=== PATIENT | male | born 1955 | race Caucasian/White ===

== ENCOUNTER → 2016-12-08 | Outpatient (CLI) | payer BC ==
[~2016-12-08] MED LIST: ACET325T96 PO; GLUCTAB7 PO; IBUP-1050 PO; MAGN250T3 PO; TURM1CAP PO
--- NOTE | 2016-12-08 08:36 | DIAGNOSTIC IMAGING REPORT ---
RIGHT KNEE INCLUDING BILATERAL STANDING AP VIEWS CLINICAL HISTORY: Right knee pain COMPARISON: 09/17/2015 DISCUSSION: No acute fractures are visualized. A small right joint effusion is suspected. There are moderate posterior osteoarthritic changes involving the right knee with medial joint compartment narrowing. There are small dorsal patellar spurs. No destructive lesions are evident. IMPRESSION: Moderate osteoarthritic changes involving the right knee. No acute fractures. Electronically signed by: James Roberts M.D. 12/08/2016 8:34 AM Dictated Date/Time: 12/08/2016 8:33 AM
== END | disposition home or self-care (01) ==
LOC: C.RDSM 08:15
PROVIDERS: ATTEND Physician Assistant
DX: M17.11 Unilateral primary osteoarthritis, right knee (principal)

== ENCOUNTER → 2017-03-13 | Outpatient (CLI) | payer BC ==
--- NOTE | 2017-03-13 08:11 | DIAGNOSTIC IMAGING REPORT ---
RIGHT SHOULDER MIN 2 VIEWS CLINICAL HISTORY: Right shoulder pain. Impingement syndrome. COMPARISON: 03/17/2016 DISCUSSION: No fractures or dislocations are visualized. Degenerative changes are present within the AC joint. No destructive lesions are visualized. IMPRESSION: 1. Degenerative changes within the AC joint 2. No fractures, dislocations, or periarticular calcifications are visualized Electronically signed by: James Roberts M.D. 03/13/2017 8:09 AM Dictated Date/Time: 03/13/2017 8:09 AM
== END | disposition home or self-care (01) ==
LOC: C.RDSM 08:32
PROVIDERS: ATTEND Physician Assistant
DX: M75.41 Impingement syndrome of right shoulder (principal)

== ENCOUNTER → 2017-04-17 | Outpatient (CLI) | payer BC ==
--- NOTE | 2017-04-17 08:50 | DIAGNOSTIC IMAGING REPORT ---
R HAND MIN 3 VIEWS CLINICAL HISTORY: RIGHT HAND PAIN COMPARISON: None. DISCUSSION: No acute fractures are visualized. There are mild osteoarthritic changes. There is deformity involving the tuft of the distal phalanx of the index finger. This could be secondary to either prior trauma or frostbite injury. Hyperparathyroidism, psoriasis, and collagen vascular disease are also included within the differential. Clinical correlation is advocated in this regard. There are small bony erosions involving the distal aspect of the proximal phalanx of the fourth digit. There is a bony erosion involving the base of the hamate. There is a small erosion involving the distal ulna. IMPRESSION: 1. No acute fractures 2. Mixed arthritic pattern with areas of osteoarthritis as well as several small erosions 3. 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 Please see above differential diagnosis. Clinical correlation will be necessary. Electronically signed by: James Roberts M.D. 04/17/2017 8:48 AM Dictated Date/Time: 04/17/2017 8:44 AM
== END | disposition home or self-care (01) ==
LOC: C.RDSM 10:37
PROVIDERS: ATTEND Physician Assistant
DX: M19.041 Primary osteoarthritis, right hand (principal)

== ENCOUNTER → 2017-05-26 | Day surgery (SDC) | payer BC ==
[2017-05-13 09:49] VITALS: Ht 172.7 cm; Wt 72.7 kg
[~2017-05-26] VITALS: Ht 172.7 cm; Wt 72.7 kg
[~2017-05-26] MED LIST changes: +ATROPINE SULFATE 0.1 MG/ML 5ML SYR IV PRN; +BUPIVACAINE 0.5 % 5 MG/1 ML PF 10ML VIAL ONE; +CEFAZOLIN 2000MG IV PUSH 10 ML IV SCH; +EpHEDrine SULFATE INJ 50 MG/ML AMP IV PRN; +FENTANYL CITRATE INJ 50 MCG/1 ML 2 ML VIAL IV PRN; +FENTANYL CITRATE INJ 50 MCG/1 ML 2 ML VIAL ONE; +LACTATED RINGER'S 1000ML 1,000 ML IV SCH; +LIDOCAINE HCL 2% 2 ML VIAL (20MG/ML) ONE; +LIDOCAINE HCL 2% LOCAL 20 ML VIAL ONE; +MIDAZOLAM HCL 1 MG/ML 2ML VIAL ONE; +ONDANSETRON INJ 2 MG/ML 2 ML VIAL IV PRN; +PROPOFOL IV EMULSION 10 MG/ML 20 ML VIAL IV ONE; +SODIUM CHLORIDE 0.9% 1000ML 1,000 ML IV SCH
--- NOTE | 2017-05-26 14:17 | History & Physical Bridge Note ---
H&P Re-Evaluation Bridge Note: I have examined the patient, reviewed the History & Physical and in the interval since the performance of the History & Physical I have noted the following changes of clinical significance: consent obtained.No changes noted
--- NOTE | 2017-05-26 14:18 | Discharge Instructions ---
Discharge Instructions Date of Service May 26, 2017. Visit Reason for Visit: Right Wrist Carpal Tunnel Syndrome Discharge Discharge Diagnosis / Problem: same Discharge Goals Goal(s): Decrease discomfort, Improve function, Increase independence Medications Stopped Medications Name(s): na Restart Stopped Medication(s): use all scripts as directed Activity Recommendations Activity Limitations: as noted below Lifting Limitations: until after follow-up appointment Exercise/Sports Limitations: until after follow-up appointment May Resume Sexual Activity: when tolerated Shower/Bathe: keep incision dry Anesthesia . Post Anesthesia Instructions: If you have had General Anesthesia or IV Sedation: * Do not drive today. * Resume driving when surgeon permits. * Do not make important decisions or sign legal documents today. * Call surgeon for: 1. Temperature elevations greater than 101 degrees F. 2. Uncontrollable pain. 3. Excessive bleeding. 4. Persistent nausea and vomiting. 5. Medication intolerance (nausea, vomiting or rash). * For nausea and vomiting use only clear liquids such as: tea, soda, bouillon until nausea subsides, then gradually increase diet as tolerated. * If you have any concerns or questions, call your surgeon's office. If physician is unavailable and it is an emergency, call 911 or go to the nearest emergency room. . Instructions / Follow-Up Instructions / Follow-Up The following are instructions to follow after minor hand surgery. ACTIVITY RECOMMENDATIONS: * Minimize activity until your first visit after surgery. * No excessive walking, jogging, sports or laboring. * Return to activity is individualized. Most patients are able to return to everyday activities within 2 weeks. * Return to sports or intensive labor usually occurs at 1-2 months. * DRIVING: Driving may be resumed when you feel you have adequate pain control and use of the hand. * BATHING: You may shower or sponge-bathe immediately after surgery. The dressing will need to be covered with a plastic bag or plastic wrap until the dressing is changed on the fourth or fifth day after surgery. Once the dressing has been changed on the fourth or fifth day after surgery, you may shower and get the incision wet. * Wash with regular soap and water. * Do not bathe (submerge the incision), soak, swim or use a hot tub until the incision is completely healed over with normal skin and the doctor has given the OK to proceed. * There is no need to apply any ointments, powders or salves to your incision. * Do not apply alcohol or hydrogen peroxide directly to the incision. Diluted peroxide (50:50 mixture with sterile saline) may be used to clean dried blood from around the incision area. WORK/SCHOOL: * You may return to sedentary work or school when you are feeling comfortable. This is usually 3-7 days after surgery. * Expect increased discomfort with increased activity. Continue to elevate and ice the hand as much as possible. DIET: * Resume previous diet. MEDICATIONS: * You will have a prescription for pain medication and an anti-inflammatory medication after surgery. Use the pain pills for severe pain and the anti-inflammatory for less severe pain. * Once the pain pills have run out, try to use the anti-inflammatory. If this is not effective then contact the office for assistance. * The pain medication may cause nausea, constipation and sleepiness. You should see how they affect you before driving or similar activity. * The anti-inflammatory may cause stomach upset and bleeding. If this occurs, let your doctor know immediately . * Some patients may need blood clot prevention. This can be done with either a pill or a simple shot. Your doctor will advise you on when to begin these medications and how to take them. * Do not take aspirin or other anti-inflammatory products (i.e. Advil or Aleve ) if taking blood thinner medication. * Take a stool softener like Colace or a stimulant like Senokot to prevent constipation. SPECIAL CARE INSTRUCTIONS: ICE: * Do not apply ice directly to the skin. * Use a thin dressing or stockinet between the skin and ice bag. The dressing in place after surgery will suffice. * Apply ice for 20-30 minutes and repeat every 2-4 hours. This is especially important for the first 3-7 days after surgery. * Once the pain improves, use ice as needed. ELEVATION: * Keep your hand elevated at or above the level of your heart as much as possible. * Expect some increased discomfort and swelling if you allow your hand to hang down for any length of time. DRESSING: * Your dressing will be changed 4-5 days after surgery by the physical therapist or physician's treasury assistant. Leave your dressing intact until this time. * You may then change your dressing daily with clean dry gauze or Band-aids and a soft wrap or stockinet. * Always wash your hands prior to touching the incision area. * Once the stitches are removed, you may leave the wound open to air or cover with a thin bandage. * There is no need to apply any ointments, powders or salves to your incision. * Expect some bloody drainage for the first few days after surgery. * Leave the tape strips in place (if present) for 5-7 days. * The initial dressing after surgery may become soaked with blood or fluid which is normal. You may reinforce your dressing with clean, dry gauze as needed. BRACE: * Bracing is generally not needed after routine hand surgery. THERAPY: * Physical therapy may be prescribed after your surgery. * For carpal tunnel and trigger digit surgery you may begin moving your fingers and wrist immediately after surgery as tolerated. * Be careful to not overuse. * Once the sutures are removed, further range of motion exercises can be performed. * Hand incisions may be very sensitive for a few months after surgery so avoid excessive pressure on the incision. If necessary, use a padded weightlifters' glove. * You may massage the incision with skin cream to make it less sensitive and reduce scarring. * Hand strength usually returns with normal use. * If needed, squeezing a soft sponge or Play-dough may help. * Your doctor will recommend physical therapy if necessary. PROBLEMS/QUESTIONS: * If you have any problems such as severe pain, numbness, tingling or high fevers or if you have any questions, please contact the office at [phone]. * It is not uncommon to have some numbness and tingling after the surgery especially if you have had a nerve block done. This should gradually improve over the first 1- 2 days. If this persists longer or worsens then contact the office. FOLLOW UP VISIT: * If not already scheduled, please call the office at to schedule follow-up appointments for approximately 10 days, 6 weeks and 3 months after surgery. Diet Recommendations Recommended Home Diet: resume previous diet Pending Studies Studies pending at discharge: no Medical Emergencies . Who to Call and When: Medical Emergencies: If at any time you feel your situation is an emergency, please call 911 immediately. . Non-Emergent Contact Non-Emergency issues call your: Specialist Call Non-Emergent contact if: temperature is above 101.5, wound has increased drainage, wound has increased redness, wound has increased pain . . "Provider Documentation" section prepared by Mor Brown. .
--- NOTE | 2017-05-26 14:53 | [facility] Post Operative Brief Note ---
Immediate Operative Summary Operative Date May 26, 2017. Pre-Operative Diagnosis Right Carpal Tunnel Syndrome Post-Operative Diagnosis Same Procedure(s) Performed Right Carpal Tunnel Release Surgeon Dr. Brown Vice President Education Surgeon(s) Dayanna Patricia PA-C Estimated Blood Loss Trace Findings CTS Fluids (cc crystalloids) 400cc Specimens None Drains none Anesthesia local/sedation Complication(s) None Disposition Recovery Room / PACU
[2017-05-26 14:55] VITALS: TEMP 36.4
--- NOTE | 2017-05-26 15:01 | Anesthesia Progress Nt - [facility] ---
Anesthesia Post Op Note Date & Time May 26, 2017 at 15:01 Vital Signs Pain Intensity: 4 Vital Signs Past 12 Hours Date Time Temp Pulse Resp B/P (MAP) Pulse Ox O2 Delivery O2 Flow Rate FiO2 05/26/17 14:55 36.4 89 16 118/76 (90) 95 Room Air 05/26/17 12:41 36.8 73 16 116/78 (91) 97 Room Air Notes Mental Status: alert / awake / arousable, participated in evaluation Pt Amnestic to Procedure: Yes Nausea / Vomiting: adequately controlled Pain: adequately controlled Airway Patency, RR, SpO2: stable & adequate BP & HR: stable & adequate Hydration State: stable & adequate Anesthetic Complications: no major complications apparent
--- NOTE | 2017-05-26 15:20 | [facility] Operative Report ---
Operative Report Operative Date May 26, 2017. Pre-Operative Diagnosis Right Carpal Tunnel Syndrome Post-Operative Diagnosis Same Procedure(s) Performed Right Carpal Tunnel Release Surgeon Dr. Brown Customer Relationship Specialist Surgeon(s) Dayanna Patricia PA-C Estimated Blood Loss Trace Findings Right wrist median nerve entrapment Fluids (cc crystalloids) 400cc Specimens None Drains none Complication(s) None Disposition phase 2 recovery Indications This 62-year-old white male presented to the office complaints of right hand numbness and tingling that has been ongoing for over a year. He had tried conservative care measures without success. Symptoms were worse with use. He elected to proceed with surgical intervention after being educated about potential risks and outcomes. Preoperative EMG was obtained. Description of Procedure Patient was taken to the operating room where he was given local anesthetic and sedation. He was prepped and draped in usual sterile fashion. Please see Dr. Brown's operative report for specifics of the procedure. I was present for the entire case from initial patient positioning through final wound closure. Assistance was provided in tissue traction, hemostasis, final wound closure and splint application. Patient was taken to phase 2 recovery in satisfactory condition. I attest to the content of the Intraoperative Record and any orders documented therein. Any exceptions are noted below.
[2017-05-26 15:25] VITALS: BP 119/78; PULSE 61; O2SAT 98
--- NOTE | 2017-05-26 15:32 | OPERATIVE REPORT ---
DATE OF OPERATION: 05/26/2017 SURGEON: Dr. Brown. JAVA TECHNICAL MANAGER: Isak Patricia PA-C. No resident or fellow available. PREOPERATIVE DIAGNOSIS: Right carpal tunnel syndrome. POSTOPERATIVE DIAGNOSIS: Same. OPERATION PERFORMED: Right carpal tunnel release. PERIOPERATIVE SITUATION: Medically cleared male with intractable numbness and tingling in his right hand. Physical exam, x-ray, EMG consistent with the above diagnosis. DESCRIPTION OF PROCEDURE: The patient appropriately identified, site verified, consent verified, 2 grams of Ancef confirmed as being given. The right upper extremity was injected with 4 mL of 0.5% Marcaine without epinephrine and 4 mL of 2% plain lidocaine. The arm was then prepped and draped in usual routine fashion. Tourniquet inflated to 250 mmHg after exsanguination of limb with a rubber Esmarch bandage for a total of roughly 14 minutes. Curvilinear incision made based on the fourth ray. Blunt dissection down to the fascia. This was then incised under direct vision. The antebrachial fascia and the transverse carpal ligament identified and released from proximal to distal. Care taken to protect the superficial palmar arch distally. The nerve was quite congested, there was some synovium around it which was resected. No specimen was sent. The floor of the carpal canal had no masses. The FPL was identified. The motor takeoff branch was identified but not explored. The wound was then irrigated and then closed using a horizontal 4-0 nylon mattress sutures, Dermabond, splint and soft dressing. The patient was then transferred to holding area in satisfactory condition having tolerated the procedure well. Estimated blood loss was trace. Crystalloid 400 mL. No DVT prophylaxis. I attest to the content of the Intraoperative Record and any orders documented therein. Any exception s are noted below.
== END | disposition home or self-care (01) ==
LOC: X.SURG 12:06
PROVIDERS: ATTEND Physical Medicine & Rehabilitation Sports Medicine
DX: G56.01 Carpal tunnel syndrome, right upper limb (principal); Z85.828 Personal history of other malignant neoplasm of skin; Z98.890 Other specified postprocedural states

== ENCOUNTER 2019-12-28 05:16 | Observation (INO) ==
--- NOTE | 2019-11-29 15:42 | PAT Medication Instructions ---
Medication Instructions Date of Service November 29, 2019 Home Medications atorvastatin 20 mg PO QAM glucos sul [id number] [Glucosamine Chondroitin] 2 cap PO DAILY turmeric 400 mg PO DAILY vitamin B complex 1 cap PO Q2D STOP taking 2 weeks before surgery (or as soon as possible if surgery is within 2 weeks) glucos sul [id number] [Glucosamine Chondroitin] 2 cap PO DAILY turmeric 400 mg PO DAILY DO NOT take the morning of surgery vitamin B complex 1 cap PO Q2D Take morning of surgery With a small sip of water, OTHERWISE NOTHING TO EAT OR DRINK AFTER MIDNIGHT: atorvastatin 20 mg PO QAM Other Notes If you have any questions please call us at [phone] or [phone] or [phone] or [phone]
--- NOTE | 2019-12-05 18:23 | History and Physical Report ---
DATE OF ADMISSION: 12/28/2019 CHIEF COMPLAINT: Right knee pain. HISTORY OF PRESENT ILLNESS: This 64-year-old white male presents today with complaints of longstanding history of right knee pain. It has been present for several years. He has done activity modification, cortisone injections and viscosupplementation injections with mixed results. He is no longer getting relief at this point. Pain is affecting his ADLs. It is worse with weightbearing and activities of daily living. He denies any numbness or tingling. Occasional effusions. He does get night pain. Pain is primarily medial. He denies any catching or locking. He elects to proceed with right total knee arthroplasty in hopes of improving his pain and function. Preoperative imaging has been obtained. PAST MEDICAL HISTORY: Significant for a history of heart murmur as a child, elevated cholesterol, sleep apnea, uses CPAP, osteoarthritis, history of basal cell skin cancer. PAST SURGICAL HISTORY: Herniorrhaphy, right knee arthroscopy and meniscectomy, carpal tunnel release, hemorrhoidectomy, skin biopsies. CURRENT MEDICATIONS: Atorvastatin 20 mg p.o. daily. ALLERGIES: NKDA. FAMILY HISTORY: Noncontributory. SOCIAL HISTORY: The patient is . No tobacco use. Occasional ETOH use. REVIEW OF SYSTEMS: A total of 10 systems are reviewed and are significant only for above-stated conditions. PHYSICAL EXAMINATION: VITAL SIGNS: Temperature 36.3, BP 120/70, pulse 78, O2 sat 97% on room air, height 173 cm, weight 72 kilograms, BMI 24.0. GENERAL: Well-developed, well-nourished middle aged white male in no acute distress. Sitting on a bed. Alert and oriented. SKIN: Warm and dry with good turgor. No rashes or lesions. No ecchymosis or erythema. No intraarticular effusion. HEENT: Normocephalic, atraumatic. Eyes: PERRLA, EOMI. Oropharynx exam deferred due to COVID risk. The patient is wearing a mask. HEART: RRR. No MGR. LUNGS: Clear to auscultation bilaterally. No crackles, rhonchi or wheezing. Good air movement. ABDOMEN: Bowel sounds present x4, soft, nontender. No organomegaly. No masses. MUSCULOSKELETAL: Right knee evaluation reveals no intraarticular effusion. He continues to have focal discomfort with palpation over the medial joint line. No lateral joint line discomfort today. Stable collateral ligaments. Full terminal extension. Flexion to greater than 100 degrees. Strength is 5/5 with fair quad tone. Ambulates with a slightly antalgic gait. No defect in the patellar tendon or quadriceps tendon. NEUROLOGIC: Gross sensation is intact across both lower extremities by soft touch. Peripheral pulses are 2+. DATA: Radiographic imaging previously obtained shows medial joint space narrowing, subchondral sclerosis, and periarticular osteophytes. There is lateral tibial subluxation as well. IMPRESSION: Right knee end-stage degenerative joint disease. PLAN: Informed written consent to proceed with surgical intervention will be obtained on the morning of surgery. Postoperative prescriptions for Percocet and Coumadin will be provided at discharge from the hospital. Anticipate discharge to home with home health services. Preoperative lab work, EKG, and chest x-ray have been ordered. Prescription was provided for a rolling walker. He will see his PCP for clearance. The patient is aware of the COVID-19 risks associated with surgery. He is asymptomatic of any COVID-19 symptoms at this time. He will obtain nasal swab testing for COVID a few days prior to surgery and then self quarantine. Results will be made available to him prior to surgery.
--- NOTE | 2019-12-06 23:08 | PAT Medication Instructions ---
Medication Instructions Date of Service December 06, 2019 Home Medications atorvastatin 20 mg PO QAM [Glucosamine Chondroitin] 2 cap PO DAILY turmeric 400 mg PO DAILY vitamin B complex 1 cap PO Q2D STOP taking 2 weeks before surgery If surgery is within 2 weeks, stop taking as soon as possible. [Glucosamine Chondroitin] 2 cap PO DAILY turmeric 400 mg PO DAILY DO NOT take the morning of surgery vitamin B complex 1 cap PO Q2D Take morning of surgery With a small sip of water, OTHERWISE NOTHING TO EAT OR DRINK AFTER MIDNIGHT: atorvastatin 20 mg PO QAM Other Notes If you have any questions please call us at [phone] or [phone] or [phone] or [phone]
--- NOTE | 2019-12-07 08:58 | Anesthesiology Consultation ---
Date of Service December 07, 2019 Assessment & Plan (1) Encounter for pre-operative examination: COVID Status: As of 12/05 nurse assessment, patient denies travel to endemic area, known exposure/sick contacts, symptoms, or testing for coronavirus. Chart Review Chart Review: Acceptable Risk for Surgery (pending surgeon-ordered PCP clearance 12/08) and Patient seen in Pre Admission Testing Teaching & Discussion Instructed NPO after midnight before surgery, except medications with 15 cc of water. Medication instructions provided according to the PAT guidelines. History Surgery Operation Date: 12/28/19 08:50 Proposed Procedures p Right Total Knee Arthroplasty - Mor Brown MD Height/Weight Height: 5 ft 8 in Weight: 72.3 kg Allergies Allergy/AdvReac Type Severity Reaction Status Date / Time No Known Allergies AdvReac Unknown Unverified 11/25/19 09:47 Medications Home Medications Medication Instructions Recorded Confirmed Last Taken atorvastatin 20 mg PO QAM 09/15/19 11/25/19 Unknown glucos sul [id number] 2 cap PO DAILY 09/15/19 11/25/19 Unknown [Glucosamine Chondroitin] turmeric 400 mg PO DAILY 09/15/19 11/25/19 Unknown vitamin B complex 1 cap PO Q2D 09/15/19 11/25/19 Unknown Past Medical History Medical History (Updated 12/07/19 @ 09:06 by Eriberto Vargas) High cholesterol History of basal cell cancer & REMOVED History of cardiac murmur CHILD/RESOLVED Osteoarthritis Sleep apnea CPAP HS Exercise / Class Metabolic Activity II 4-5 Yardwork/Stairs/Walk up hill Past Surgical History Surgical History History of carpal tunnel surgery of right wrist History of colonoscopy History of hemorrhoidectomy History of hernia surgery History of right knee surgery History of tonsillectomy Past Anesthesia History No Hx of Anesthesia Complications and No Family Hx of Anesthesia Complications History of PONV No Hx of PONV and Hx of Motion Sickness Social History Smoking Status: Never smoker Do You Dip or Chew Tobacco: No (HX OF 40 YR AGO) Hx Alcohol Use: Yes (rare) alcohol intake frequency: holidays/special occasions only Hx Substance Use: No substance use type: does not use Review of Systems Pt denies any recent chest pain, shortness of breath, palpitations, cough, fever or URI. Physical Exam Vital Signs BP: 117/78 P: 73bpm SPO2: 96% RA T: 98.0 F R: 12 ENMT Mouth: + dental restorations (one implant, 2 crowns on molars); no chipped teeth and no loose teeth Thyromental Distance: > or= 3.5 Finger Breadths (3.5) Mallampati Class: II Neck normal visual inspection; neck extension not limited Respiratory normal respiratory effort Auscultation: lungs clear to auscultation bilaterally Cardiovascular Rate/Rhythm: regular rate and regular rhythm Heart Sounds: no murmur Testing Laboratory Results 12/07/19 08:46 12/07/19 09:08 PT 10.4 Seconds (9.0-12.0) 12/07/19 08:46 INR 1.0 (0.9-1.1) 12/07/19 08:46 APTT 27.5 Seconds (21.0-31.0) 12/07/19 08:46 Urine Color Yellow 12/07/19 08:46 Urine Appearance Cloudy (Clear) A 12/07/19 08:46 Urine pH 7.5 (4.5-7.5) 12/07/19 08:46 Ur Specific Mercer 1.022 (1.000-1.030) 12/07/19 08:46 Urine Protein Negative (Negative) 12/07/19 08:46 Urine Glucose (UA) Negative (Negative) 12/07/19 08:46 Urine Ketones Negative (Negative) 12/07/19 08:46 Urine Nitrite Negative (Negative) 12/07/19 08:46 Ur Leukocyte Esterase Negative (Negative) 12/07/19 08:46 Urine WBC (Auto) 0 /hpf (0-5) 12/07/19 08:46 Urine RBC (Auto) 0-4 /hpf (0-4) 12/07/19 08:46 U Hyaline Cast (Auto) 0 /lpf (0-5) 12/07/19 08:46 U Epithel Cells (Auto) 0-5 /lpf (0-5) 12/07/19 08:46 Urine Bacteria (Auto) Negative (Negative) 12/07/19 08:46 Blood Type O Negative 12/07/19 08:46 Antibody Screen NEGATIVE 12/07/19 08:46 Electrocardiogram Date: 12/07/19 Findings: + NSR @ (65bpm) Chest X-Ray Date: 12/07/19 Findings: + NAD
--- NOTE | 2019-12-07 09:55 | XRay Report ---
XR chest Pre-admission PA/Lat HISTORY: Preop. COMPARISON: None. FINDINGS: A faint 7 mm nodular density within the right lower lung zone only seen on the frontal view appears to represent a nipple shadow on the lateral view. The lungs appear clear. No pleural effusio ns. No pneumothorax. The heart is normal in size. IMPRESSION: No acute process. ACT 112: Negative or not required by law. Electronically signed by: Anton Gottlieb M.D. 12/07/2019 9:53 AM
[2019-12-07 10:30] LABS: Basophils # (auto) 0.02 K/uL (0-0.2); Basophils % (auto) 0.3 %; Eosinophils # (auto) 0.21 K/uL (0-0.5); Eosinophils % (auto) 3.6 %; Hematocrit (blood only) 46.9 % (42-52); Hemoglobin 15.8 g/dL (14.0-18.0); Lymphocytes # (auto) 1.43 K/uL (1.2-3.4); Lymphocytes % (auto) 24.5 %; Mean Corpuscular Hemoglobin 30.8 pg (25-34); Mean Corpuscular Hgb Conc 33.7 g/dL (32-36); Mean Corpuscular Volume 91.4 fL (80-100); Mean Platelet Volume 10.9 fL (7.4-10.4); Monocytes # (auto) 0.43 K/uL (0.11-0.59); Monocytes % (auto) 7.4 %; Neutrophils # (auto) 3.74 K/uL (1.4-6.5); Neutrophils % (auto) 64.2 %; Platelet Count 238 K/uL (130-400); RDW Standard Deviation 40.3 fL (36.4-46.3); Red Blood Count 5.13 M/uL (4.7-6.1); White Blood Count 5.83 K/uL (4.8-10.8)
[2019-12-07 10:32] LABS: Appearance Urine Cloudy (Clear); Bacteria Urine Automated Negative (Negative); Bilirubin Urine Negative (Negative); Blood Urine Negative (Negative); Cast Urine Automated 0 /lpf (0-5); Color Urine Yellow; Epithelial Cell Urine Auto 0-5 /lpf (0-5); Glucose Urine UA Negative (Negative); Ketones Urine Negative (Negative); Leukocyte Esterase Urine Negative (Negative); Nitrite Urine Negative (Negative); Protein Urine Negative (Negative); RBC Urine Automated 0-4 /hpf (0-4); Specific Gravity Urine 1.022 (1.000-1.030); Urobilinogen Urine Negative (Negative); WBC Urine Automated 0 /hpf (0-5); pH Urine 7.5 (4.5-7.5)
[2019-12-07 10:41] LABS: BUN Creatinine Ratio 19.5 (10-20); Calcium 8.7 mg/dl (8.5-10.1); Creatinine Clr Calc Pharmacy 56.1 ml/min; Est GFR (African American) 68.3; Est GFR (Non-African American) 58.9; Potassium 4.3 mmol/L (3.5-5.1)
[2019-12-07 10:44] LABS: Partial Thromboplastin Time 27.5 Seconds (21.0-31.0); Prothrombin Time 10.4 Seconds (9.0-12.0)
--- NOTE | 2019-12-08 12:33 | Electrocardiogram Report ---
Test Reason : Blood Pressure : / mmHG Vent. Rate : 065 BPM Atrial Rate : 065 BPM P-R Int : 202 ms QRS Dur : 082 ms QT Int : 382 ms P-R-T Axes : 058 053 036 degrees QTc Int : 397 ms Normal sinus rhythm Normal ECG No previous ECGs available Confirmed by Jorge Carrera ([id number]) on 12/08/2019 12:32:53 PM Referred By: Mor Brown Confirmed By:Jorge Carrera
[2019-12-28] MEDS ORDERED: TRANEXAMIC ACID 1,000 MG **IV Pre-op IV SCH (06:00)
[2019-12-28] MEDS ORDERED: LR 500ML BOLUS, THEN 15ML/HR IV SCH (06:00)
[2019-12-28] MEDS ORDERED: CEFAZOLIN 2000MG 2,000 MG/15 ML SYR IV SCH (06:00)
[2019-12-28] MEDS ORDERED: LR 60ML/HR IV SCH (06:00)
[2019-12-28] MEDS ORDERED: ROPIVACAINE 0.5% HCL/PF 150 MG, BUPIVACAINE 0.5% MPF 30 ML, EPINEPHrine 0.15 MG, Ketoro... INFIL SCH (06:00)
--- NOTE | 2019-12-28 06:19 | History & Physical Bridge Note ---
Date of Service December 28, 2019 History & Physical Bridge Note I have examined the patient, reviewed the History & Physical and in the interval since the performance of the History & Physical I have noted the following changes of clinical significance:consent obtained/site marked/covid screen negative. no changes noted
[2019-12-28] MEDS ORDERED: MIDAZOLAM HCL 1 MG/ML 2ML VIAL ONE (06:21)
[2019-12-28] MEDS ORDERED: LIDOCAINE HCL 2% 2 ML VIAL/AMP(20MG/ML) INFIL ONE (06:21)
[2019-12-28] MEDS ORDERED: fentaNYL citrate 100 MCG/2 ML VIAL ONE (06:21)
[2019-12-28] MEDS ORDERED: PROPOFOL IV EMULSION 10 MG/ML 20 ML VIAL IV ONE (06:21)
[2019-12-28] MEDS ORDERED: BUPIVACAINE/EPINEPHRINE 0.25% 1:200,000 30 ML VIAL ONE (06:22)
[2019-12-28] MEDS ORDERED: BUPIVACAINE 0.5 % 5 MG/1 ML PF 10ML VIAL ONE (06:22)
[2019-12-28] MEDS ORDERED: DEXAMETHASONE SOD INJ 4 MG/ML VIAL ONE (06:22)
[2019-12-28] MEDS ORDERED: ORTHO JOINT ANESTHETIC ONE (06:42)
[2019-12-28] MEDS ORDERED: ATROPINE SULFATE 0.1 MG/ML 10ML SYR IV PRN (06:55)
[2019-12-28] MEDS ORDERED: fentaNYL citrate 100 MCG/2 ML VIAL IV PRN (06:55)
[2019-12-28] MEDS ORDERED: ePHEDrine sulfate 50 MG/ML AMP IV PRN (06:55)
[2019-12-28] MEDS ORDERED: ONDANSETRON INJ 2 MG/ML 2 ML VIAL IV PRN ×2 (06:55→10:02)
--- NOTE | 2019-12-28 08:28 | Post Operative Brief Note ---
Immediate Post Op Note v1 Date of Surgery December 28, 2019 Pre & Post Diagnosis Operation Date: 12/28/19 07:00 Pre-Op Diagnosis: Right Knee Degenerative Joint Disease Post-Op Diagnosis: Right Knee Degenerative Joint Disease I identified the patient and participated in the time-out.: Yes Procedure Operation Date: 12/28/19 07:00 Actual Procedures p Right Total Knee Arthroplasty(Right) - Mor Brown MD Surgeon Mor Brown MD [employer] sharee/donn Estimated Blood Loss 25 Findings Consistent with Post-Op Diagnosis
--- NOTE | 2019-12-28 08:33 | Operative Report ---
Post Operative Report Pre & Post Diagnosis Operation Date: 12/28/19 07:00 Pre-Op Diagnosis: Right Knee Degenerative Joint Disease Post-Op Diagnosis: Right Knee Degenerative Joint Disease I identified the patient and participated in the time-out.: Yes Procedure Operation Date: 12/28/19 07:00 Actual Procedures p Right Total Knee Arthroplasty(Right) - Mor Brown MD Surgeon HAMIDA Brown MD Patient Day Coordinator sharee/donn Estimated Blood Loss 25 Findings Consistent with Post-Op Diagnosis Specimens see operative report Drains none Complications none Disposition Accompanied Patient To Recovery: Yes Disposition: Recovery Room Indications This 64-year-old white male presented to the office with complaints of intractable right knee pain. He had tried conservative care measures including cortisone injection and Visco supplementation injections, without lasting improvement. He elected to proceed with surgical intervention after being educated about potential risks and outcomes. Preoperative imaging was obtained. Description of Procedure Patient was administered a spinal anesthetic and then taken to the operating room where he was given sedation. He was prepped and draped in the usual sterile fashion. Please see Dr. Brown's operative report for specifics of the procedure. I was present for the entire case from initial patient positioning through final wound closure. Assistance was provided in patient positioning, tissue retraction, hemostasis, trial implant placement, final implant placement, and final wound closure. Patient was taken to the recovery room in satisfactory condition. I attest to the content of the Intraoperative Record and any orders documented therein. Any exceptions are noted below.
--- NOTE | 2019-12-28 09:03 | XRay Report ---
RIGHT KNEE 2 VIEWS History: Right total knee arthroplasty. Degenerative arthritis. Postop. FINDINGS: The patient is status post a right total knee arthroplasty. The hardware is intact. No frac ture or dislocation. Skin chelsi are in place. IMPRESSION: Right total knee arthroplasty. No evidence for hardware complication. ACT 112: Negative or not required by law. Electronically signed by: Anton Gottlieb M.D. 12/28/2019 9:02 AM
--- NOTE | 2019-12-28 09:28 | Operative Report (OR) ---
DATE OF OPERATION: 12/28/2019 SURGEON: Mor Brown MD. BUSINESS SUPPORT SPECIALIST: Dr. Farley. SECOND BUSINESS SUPPORT SPECIALIST: Isak Patricia PA-C. PREOPERATIVE DIAGNOSES: Osteoarthritis with varus deformity right knee. POSTOPERATIVE DIAGNOSES: Osteoarthritis with varus deformity right knee. OPERATION PERFORMED: Cemented right total knee replacement. PERIOPERATIVE SITUATION: Medically cleared male who is status post open meniscectomy multiple decades ago. Now has significant varus osteoarthritis of his knee. At this point in time, wants to proceed with surgical treatment, has failed conservative management. He understands the risks and consequences. See the consent. SUMMARY OF IMPLANTS: Right 3 femur posterior cruciate substituting, size 4 mobile bearing tray tibia, size 41 patella, size 3 x 10 posterior cruciate substituting insert, 2 bags of Palacos G cement. ESTIMATED BLOOD LOSS: 25 mL. CRYSTALLOID: Per Anesthesia. PATHOLOGY: Pending on bone. DVT prophylaxis per protocol. DESCRIPTION OF PROCEDURE: The patient was appropriately identified, site verified, consent verified. Antibiotics confirmed as being given. The right lower extremity was prepped and draped in usual routine fashion. Tourniquet inflated to 300 mmHg after exsanguination of limb with a rubber Esmarch bandage for a total of 56 minutes. Midline exposure utilized. He has some slight psoriasis, but it is not bad. Old medial incision small from his open meniscectomy. Full thickness flaps raised. Parapatellar arthrotomy performed. Synovectomy completed, osteophytes resected. Distal femur then entered and resected 12 mm, proximal tibia resected 4 mm, extension gap was excellent. Femur was sized between 4 and 3, was measured 4 cut 3. There was no notching. The flexion gap was then checked. It was excellent. The box cut was then made and the size 3 fit well. The posterior capsule was injected at that point in time with 20 mL of the Orthomix. The tibia was then broached and reamed to a size 4 and appropriate size 3 spacer placed and the knee was stable in full extension, full flexion and mid range flexion. The patella tracked well. The patella was resected leaving 16 mm and a size 41 button placed and that tracked well. The Orthomix was then injected and the implant trials were then removed. The wound irrigated with Betadine and Pulsavac and then the permanent cemented in position, tibia, femur and patella in that order. After 12 minutes, the tourniquet deflated. Bleeding points controlled with electrocautery. There was minimal. The wound was then irrigated at 14 minutes. The trial spacer removed, the permanent spacer seated. The knee tracked well, was stable in all planes and then was closed at 30-40 degrees of flexion using #2 Vicryl, 2-0 Vicryl and stainless steel clips. Appropriate dressing applied. The patient transferred to Recovery Room in satisfactory condition having tolerated the procedure well. I attest to the content of the Intraoperative Record and any orders documented therein. Any exceptions are noted below. MTDD
--- NOTE | 2019-12-28 09:31 | Anesthesiology Progress Note ---
Date of Service December 28, 2019 Anesthesia Post Procedure Vital Signs Vital Signs: Temp Pulse Pulse Resp BP BP Pulse Ox 12/28/19 09:20 63 16 109/74 97 12/28/19 09:10 36.6 C 68 19 112/74 100 12/28/19 09:00 64 12 103/64 97 12/28/19 08:50 71 12 106/72 96 12/28/19 08:40 77 14 110/70 98 12/28/19 08:33 36.1 C L 79 12 105/69 96 12/28/19 05:54 36.7 C 67 16 129/91 98 Transfer of Care Handoff Completed per policy Notes Mental Status: alert / awake / arousable Patient Amnestic to Procedure: Yes Nausea / Vomiting: adequately controlled Pain: adequately controlled Airway Patency, RR, SpO2: stable & adequate BP & HR: stable & adequate Hydration State: stable & adequate Neuraxial Anesthesia: was administered and sensory block is resolving Anesthetic Complications: no major complications apparent
[2019-12-28] MEDS ORDERED: TAMSULOSIN HCL 0.4 MG CAP PO PRN (10:02)
[2019-12-28] MEDS ORDERED: ALUMINUM/MAGNESIUM SUSP 30 ML UDC PO PRN (10:02)
[2019-12-28] MEDS ORDERED: HYDROmorphone INJ 0.5 MG/0.5 ML SYR IV PRN (10:02)
[2019-12-28] MEDS ORDERED: METOCLOPRAMIDE HCL INJ 5 MG/ML 2 ML VIAL IV PRN (10:02)
[2019-12-28] MEDS ORDERED: MAGNESIUM HYDROXIDE SUSP 30 ML UDC PO PRN (10:02)
[2019-12-28] MEDS ORDERED: DiphenhydrAMINE HCL 50 MG/ML VIAL IV PRN (10:02)
[2019-12-28] MEDS ORDERED: SODIUM CHLORIDE 0.9% 1000ML 1,000 ML IV SCH (10:02)
[2019-12-28] MEDS ORDERED: bisacodyL 10 MG SUPP PR PRN (10:02)
[2019-12-28] MEDS ORDERED: OXYCODONE HCL IR 5 MG TAB (IMMEDIATE RELEASE) PO PRN (10:02)
[2019-12-28] MEDS ORDERED: NALOXONE HCL 0.4 MG/1 ML VIAL/CARP IV PRN (10:02)
--- NOTE | 2019-12-28 11:17 | Operative Report ---
Post Operative Report Pre & Post Diagnosis Operation Date: 12/28/19 07:00 Pre-Op Diagnosis: Right Knee Degenerative Joint Disease Post-Op Diagnosis: Right Knee Degenerative Joint Disease I identified the patient and participated in the time-out.: Yes Procedure Operation Date: 12/28/19 07:00 Actual Procedures p Right Total Knee Arthroplasty(Right) - Mor Brown MD Surgeon Mor Brown MD Driver'S Education Instructor sharee/donn Estimated Blood Loss 25 Findings Consistent with Post-Op Diagnosis Specimens R knee bone cuts Complications none Disposition Accompanied Patient To Recovery: Yes Disposition: Recovery Room Description of Procedure Supine, standard prep and drape, time-out, tourniquet Right Total Knee Arthroplasty Please see Dr Brown's procedure notes for specific details I was present throughout the case, assisted for wound closure and transferred the patient to PACU in stable condition I attest to the content of the Intraoperative Record and any orders documented therein. Any exceptions are noted below.
--- NOTE | 2019-12-28 12:47 | Progress Notes ---
DATE: 12/28/2019 SUBJECTIVE: Status post right total knee replacement. The patient is sitting up eating lunch. Already ate breakfast. He denies any nausea, vomiting, headache, fever or chills. OBJECTIVE: Vital signs are stable. He is afebrile. Neurovascular check of femoral sciatic nerve is good. Wound dressing is clean, dry and intact. Postop x-rays look excellent. ASSESSMENT: Doing well status post right total knee replacement. Plan for discharge tomorrow. Doing well. Hep-Lock IV.
--- NOTE | 2019-12-28 12:49 | Discharge Summary (DS) ---
CHIEF COMPLAINT: Right knee pain. HISTORY OF PRESENT ILLNESS: A 64-year-old male underwent an elective right total knee replacement. Hospital course to date has been uneventful. His x-rays look excellent. He is eating, drinking, voiding. PAST MEDICAL HISTORY: Remarkable for heart murmur as a child, hypercholesterolemia, sleep apnea, uses CPAP, osteoarthritis, history of basal cell skin cancer. PAST SURGICAL HISTORY: Includes arthroscopies of his knee, herniorrhaphy, hemorrhoidectomy, skin biopsies, carpal tunnel release. PREADMISSION MEDICATIONS: Include atorvastatin. ALLERGIES: None. FAMILY HISTORY: Noncontributory. SOCIAL HISTORY: Reveals he is . No tobacco or alcohol use. Lives and feels safe at home. REVIEW OF SYSTEMS: Noncontributory. Postop x-rays look excellent. ASSESSMENT: Doing well status post right total knee replacement. Discharge after physical therapy and occupational therapy tomorrow morning. Deep venous thrombosis prophylaxis with Coumadin.
[2019-12-28] MEDS: PANTOprazole 40 MG TAB PO SCH (12:57)
[2019-12-28] MEDS: MULTIVITAMIN TAB PO SCH (12:57)
[2019-12-28] MEDS: DOCUSATE SODIUM 100 MG CAP PO SCH ×2 (12:57→20:07)
[2019-12-28] MEDS: KETOROLAC TROMETHAMINE 15 MG/ML VIAL IV SCH ×3 (12:57→23:48)
[2019-12-28] MEDS ORDERED: ORTHO WARFARIN NOMOGRAM SCH (14:00)
[2019-12-28] MEDS ORDERED: TRANEXAMIC ACID / 0.7% NACL 1,000 MG/100 ML BAG IV SCH (14:30)
[2019-12-28] MEDS: CEFAZOLIN 2000MG 2,000 MG/15 ML SYR IV SCH ×2 (15:29→22:21)
[2019-12-28] MEDS: ACETAMINOPHEN 500 MG TAB PO SCH ×2 (15:29→22:21)
[2019-12-28] MEDS ORDERED: WARFARIN SOD 5 MG TAB PO SCH (16:00)
[2019-12-28] MEDS: FERROUS GLUCONATE 324 MG TAB PO SCH (16:51)
[2019-12-28] MEDS: ASCORBIC ACID 500 MG TAB PO SCH (16:51)
[2019-12-28] MEDS ORDERED: SENNA 8.6 MG TAB PO SCH (21:00)
[2019-12-29] MEDS: ACETAMINOPHEN 500 MG TAB PO SCH (05:39)
[2019-12-29] MEDS: KETOROLAC TROMETHAMINE 15 MG/ML VIAL IV SCH (05:40)
[2019-12-29 06:03] LABS: Hematocrit (blood only) 35.9 % (42-52); Hemoglobin 12.1 g/dL (14.0-18.0); Mean Corpuscular Hemoglobin 30.8 pg (25-34); Mean Corpuscular Hgb Conc 33.7 g/dL (32-36); Mean Corpuscular Volume 91.3 fL (80-100); Mean Platelet Volume 10.1 fL (7.4-10.4); Platelet Count 208 K/uL (130-400); RDW Standard Deviation 40.5 fL (36.4-46.3); Red Blood Count 3.93 M/uL (4.7-6.1); White Blood Count 15.99 K/uL (4.8-10.8)
[2019-12-29 06:12] LABS: INR 1.1 (0.9-1.1); Prothrombin Time 11.4 Seconds (9.0-12.0)
[2019-12-29 06:33] LABS: BUN Creatinine Ratio 20.3 (10-20); Calcium 8.5 mg/dl (8.5-10.1); Creatinine Clr Calc Pharmacy 71.3 ml/min; Est GFR (African American) 91.1; Est GFR (Non-African American) 78.6; Potassium 4.1 mmol/L (3.5-5.1)
--- NOTE | 2019-12-29 06:36 | Progress Notes ---
DATE: 12/29/2019 SUBJECTIVE: Postop day #1 status post right total knee replacement. The patient is doing well, has no major issues. He has only used Tylenol. OBJECTIVE: Vital signs are stable. He is afebrile. Neurovascular check, femoral sciatic nerve is normal. White count is elevated based on demargination from steroid dose. INR is subtherapeutic. Will be discharged on 4 mg. Will get dosed per nomogram today prior to leaving. ASSESSMENT AND PLAN: Doing well status post right total knee replacement. Discharged to home today. Follow up in 2 weeks for staple removal.
[2019-12-29] MEDS ORDERED: dexAMETHasone 10 MG in SYRINGE 0 ML IV SCH (08:00)
[2019-12-29] MEDS ORDERED: ATORVASTATIN 20 MG TAB PO SCH (09:00)
[2019-12-29] MEDS: MULTIVITAMIN TAB PO SCH (09:23)
[2019-12-29] MEDS: ASCORBIC ACID 500 MG TAB PO SCH (09:23)
[2019-12-29] MEDS: DOCUSATE SODIUM 100 MG CAP PO SCH (09:23)
[2019-12-29] MEDS: PANTOprazole 40 MG TAB PO SCH (09:23)
[2019-12-29] MEDS: FERROUS GLUCONATE 324 MG TAB PO SCH (09:24)
[2019-12-29] MEDS ORDERED: WARFARIN SOD 5 MG TAB PO ONE (10:59)
== END 2019-12-29 14:37 | disposition home health service (06) | DRG 470 ==
LOC: ASU 05:16 → INTOOBSV 08:40 → 3E 08:40